=== PATIENT | male | born 1945 | race Caucasian/White ===

== ENCOUNTER → 2021-06-29 | Outpatient (CLI) | payer MEDICARE ==
[~2021-06-29] MED LIST: ALLO300; ALLO300 PO; AMLO5; DEPO-TESTO200 MG/1 M; Flomax0.4 MG PO; HYDCHL50 PO; Hair, Skin & N1 EACH PO; K-Dur20 MEQ; LISINOPRIL-HCT1 EAC1; LOSARTAN-HCTZ1 EACH PO; METF500; POTCHL20ER PO; Percocet 5-3251 EACH PO; TADA10TA; ZALE10 PO
== END ==
LOC: LAB SHORT 09:21 → LAB 09:21 → LAB SHORT 06-30 07:29
DX: D48.5 Neoplasm of uncertain behavior of skin (principal); D22.5 Melanocytic nevi of trunk
CPT/HCPCS: 88305

== ENCOUNTER 2021-07-02 12:35 | Day surgery (SDC) | payer MEDICARE ==
[~2021-07-02] VITALS: Ht 172.7 cm; Wt 100.7 kg
[~2021-07-02 12:35] MED LIST changes: -LOSARTAN-HCTZ1 EACH PO
[2021-07-02] MEDS ORDERED: LOSARTAN-HCTZ1 EACH PO (12:59)
--- NOTE | 2021-07-02 13:03 | NUR ---
07/02/21 [address] CALL LIGHT WITHIN REACH. EYE DROPS AT 1255 PLEDGETT AT 1257
== END 2021-07-02 14:32 | disposition home or self-care (01) ==
LOC: ORSCSDS 12:35
PROVIDERS: Ophthalmology
PROC: 08RJ3JZ Replacement of Right Lens with Synthetic Substitute, Percutaneous Approach (ICD-10-PCS; principal; 2021-07-02 14:00)
DX: H25.11 Age-related nuclear cataract, right eye (principal); Z86.73 Personal history of transient ischemic attack (TIA), and cerebral infarction without residual deficits; E11.9 Type 2 diabetes mellitus without complications; Z79.899 Other long term (current) drug therapy
CPT/HCPCS: 82947; J2001; J2250; J3010; J3301; J7040; V2632

== ENCOUNTER → 2021-07-28 | Outpatient (CLI) | payer MEDICARE ==
[~2021-07-28] MED LIST changes: +LOSARTAN-HCTZ1 EACH PO
== END | disposition home or self-care (01) ==
LOC: LAB SHORT 15:08 → LAB 15:08
DX: L72.0 Epidermal cyst (principal)
CPT/HCPCS: 88305

== ENCOUNTER 2021-08-06 08:05 | Day surgery (SDC) | payer MEDICARE ==
[~2021-08-06] VITALS: Ht 172.7 cm; Wt 113.6 kg
--- NOTE | 2021-08-06 09:00 | NUR ---
08/06/21 [address] EYE DROP AT 0835 JOSELINE AT 0836
== END 2021-08-06 10:13 | disposition home or self-care (01) ==
LOC: ORSCSDS 08:05
PROVIDERS: Ophthalmology
PROC: 08RK3JZ Replacement of Left Lens with Synthetic Substitute, Percutaneous Approach (ICD-10-PCS; principal; 2021-08-06 09:30)
DX: H25.12 Age-related nuclear cataract, left eye (principal); I10 Essential (primary) hypertension; Z79.899 Other long term (current) drug therapy; E66.01 Morbid (severe) obesity due to excess calories; Z68.38 Body mass index [BMI] 38.0-38.9, adult
CPT/HCPCS: 82947; J2001; J2250; J3010; J3301; J7040; V2632

== ENCOUNTER → 2023-05-25 | Outpatient (CLI) | payer MEDICARE | LOC: PLD 07:38 → LAB SHORT 07:38 | DX: D48.5 Neoplasm of uncertain behavior of skin (principal); L72.9 Follicular cyst of the skin and subcutaneous tissue, unspecified | CPT/HCPCS: 88304 ==

== ENCOUNTER 2024-12-17 10:39 | Emergency (ER) | payer MEDICARE ==
[~2024-12-17] VITALS: Ht 172.7 cm; Wt 110.2 kg
[2024-12-17 10:49] VITALS: BP 167/112
[2024-12-17 11:28] LABS: BASOPHILS ABSOLUTE AUTO 0.02 K/mm3 (0.00-0.23); BASOPHILS PERCENT AUTO 0 % (0-2); EOSINOPHILS PERCENT AUTO 0 % (0-6); Hematocrit 48.3 % (37.0-53.0); Hemoglobin 16.7 g/dL (13.5-17.5); IMMATURE GRAN ABSOLUTE AUTO 0.03 K/mm3 (0.00-0.10); IMMATURE GRAN PERCENT AUTO 0 % (0-1); LYMPHOCYTES ABSOLUTE AUTO 4.02 K/mm3 (0.84-5.20); LYMPHOCYTES PERCENT AUTO 36 % (21-46); MONOCYTES ABSOLUTE AUTO 0.56 K/mm3 (0.16-1.47); MONOCYTES PERCENT AUTO 5 % (4-13); Mean Corpuscular HGB 30.8 pg (26.0-34.0); Mean Corpuscular HGB Conc 34.6 g/dL (31.5-36.5); Mean Corpuscular Volume 89 fL (80-100); Mean Platelet Volume 9.6 fL (9.1-12.4); NEUTROPHILS ABSOLUTE AUTO 6.68 K/mm3 (1.96-9.15); NEUTROPHILS PERCENT AUTO 59 % (41-73); Platelet Count 199 K/mm3 (150-400); RDW Standard Deviation 45.5 fL (35.1-46.3); Red Blood Cell Count 5.42 M/mm3 (4.30-5.90); White Blood Cell Count 11.31 K/mm3 (4.00-11.30)
[2024-12-17 11:54] LABS: Albumin, Blood 3.9 g/dL (3.4-5.0); Albumin/Globulin Ratio 1.1 (0.8-1.8); Bilirubin, Total 0.7 mg/dL (0.1-1.0); Bun/Creatinine Ratio 18.6 (12.0-20.0); Calcium, Blood 9.5 mg/dL (8.5-10.1); Creatinine, Blood 1.02 mg/dL (0.60-1.20); Globulin, Blood 3.4 g/dL (2.2-4.0); Potassium, Blood 3.9 mmol/L (3.5-5.5); Total Protein, Blood 7.3 g/dL (6.4-8.2)
[2024-12-17 12:24] LABS: Source, Urine Clean Catch
[2024-12-17 12:27] LABS: Appearance, Urine Clear (Clear); Bilirubin, Urine Neg (Neg); Blood, Urine 1+ (Neg); Color, Urine Yellow (P-Yellow); Glucose Qualitative, Urine Neg (Neg); Ketones, Urine Neg (Neg); Leukocyte Esterase, Urine Neg (Neg); Nitrite, Urine Neg (Neg); Protein, Urine 2+ (Neg); Specific Gravity, Urine 1.005 (1.003-1.022); Urobilinogen, Urine NORM (Normal)
[2024-12-17 12:35] LABS: Mucus Light (0-Heavy); White Blood Cells, Urine 0-2 /hpf (0-5)
[2024-12-17 12:36] LABS: Bacteria Few /hpf; Squamous Epithelial Cells Not Seen /hpf (Few)
[2024-12-17] MEDS ORDERED: Ketorolac Tromethamine 15mg Vial IV ONE (14:15)
== END 2024-12-17 15:03 | disposition home or self-care (01) ==
LOC: ER 10:39
PROVIDERS: Emergency Medicine
DX: R10.32 Left lower quadrant pain (principal); R10.12 Left upper quadrant pain; R31.9 Hematuria, unspecified; E11.9 Type 2 diabetes mellitus without complications; Z79.84 Long term (current) use of oral hypoglycemic drugs; Z79.899 Other long term (current) drug therapy; Z88.5 Allergy status to narcotic agent; Z91.018 Allergy to other foods
CPT/HCPCS: 74177; 80053; 81001; 83690; 85025; 96374-59; 99284-25; J1885; Q9967